=== PATIENT | female | born 1960 | race African-American/Black ===

== ENCOUNTER 2017-11-25 06:12 | Inpatient (IN) | payer OTHER ==
[2017-11-20 13:44] VITALS: BMI 34.2
[2017-11-25] MEDS ORDERED: oxyCODONE HCL 10 MG SUSTAINED ACTING TABLET PO ONE (06:26)
[2017-11-25] MEDS ORDERED: TRANEXAMIC ACID 1000 MG/10 ML VIAL IVPUSH ONE (06:26)
[2017-11-25] MEDS ORDERED: CELECOXIB 200 MG CAPSULE PO ONE (06:26)
[2017-11-25] MEDS ORDERED: CEFAZOLIN 1 GM/D5W 1 GRAM/50 ML BAG IVPB ONE (06:26)
[2017-11-25] MEDS ORDERED: GABAPENTIN 300 MG CAPSULE (FP) PO ONE (06:26)
[2017-11-25] MEDS ORDERED: DEXAMETHASONE SOD PHOSPHATE 4 MG/1 ML VIAL ONE (06:54)
[2017-11-25] MEDS ORDERED: ceFAZolin SODIUM 1 GM VIAL ONE ×2 (06:54→07:18)
[2017-11-25] MEDS ORDERED: ONDANSETRON 4 MG/2 ML VIAL ONE (06:54)
[2017-11-25] MEDS ORDERED: MIDAZOLAM HCL 2 MG/2 ML SINGLE DOSE VIAL ONE ×3 (06:55→07:49)
[2017-11-25] MEDS ORDERED: PROPOFOL 20 ML ONE ×3 (06:55→09:26)
[2017-11-25] MEDS ORDERED: BUPIVACAINE HCL/PF (5 MG/ML) 30 ML VIAL IJ ONE (07:03)
[2017-11-25] MEDS ORDERED: BUPIVACAINE LIPOSOME/PF (EXPAREL) 266 MG/20 ML VIAL ONE (07:03)
[2017-11-25] MEDS ORDERED: SODIUM CHLORIDE 0.9% P/F 10 ML VIAL IJ ONE (07:05)
[2017-11-25] MEDS ORDERED: VANCOMYCIN 1,000 MG VIAL (RESTRICTED TO ID ONLY) ONE (07:18)
--- NOTE | 2017-11-25 07:31 | HP ---
History & Physical Update - History History: No Change - Physical Physical: No Change - Assessment Assessment: No Change - Plan Plan: No Change
[2017-11-25] MEDS ORDERED: TRANEXAMIC ACID 1000 MG/10 ML VIAL ONE (09:23)
[2017-11-25] MEDS ORDERED: ceFAZolin SODIUM 1 GM VIAL IVPB ONE (09:59)
[2017-11-25] MEDS ORDERED: VANCOMYCIN 1,000 MG VIAL (RESTRICTED TO ID ONLY) IVPB ONE (10:00)
[2017-11-25] MEDS ORDERED: ONDANSETRON 4 MG/2 ML VIAL IVPUSH PRN (10:40)
[2017-11-25] MEDS ORDERED: MAG HYDROX/AL HYDROX/SIMETH 30 ML UNIT-DOSE CUP PO PRN (10:40)
[2017-11-25] MEDS ORDERED: PATIENT'S OWN MEDICATION (NON-FORMULARY) (Alprazolam [Xanax] 0.5 MG) PO PRN (10:44)
[2017-11-25] MEDS ORDERED: LACTATED RINGERS SOLUTION 1,000 ML IV SCH ×2 (10:45→11:00)
--- NOTE | 2017-11-25 10:57 | OP ---
Operative Note - Note: Operative Date: 11/25/17 Pre-Operative Diagnosis: Left knee osteoarthritis Operation: Left total knee arthroplasty Surgeon: Dimitry Storm Manager Membership: Dieudonne Velazquez Anesthesia: Spinal Estimated Blood Loss (mls): 50 Operative Report Dictated: Yes
[2017-11-25] MEDS ORDERED: oxyCODONE HCL 5 MG TABLET PO PRN (10:58)
[2017-11-25] MEDS ORDERED: ACETAMINOPHEN 1000 MG/100 ML VIAL (NON FORMULARY) IVPB ONE (10:58)
--- NOTE | 2017-11-25 10:58 | SURG ---
Surgery Fiber Technician Note Fiber Technician: Dieudonne Velazquez PA-C Date of Service: 11/25/17 Diagnosis: Left knee osteoarthritis Procedure: Left knee total arthroplasty I was present for the entirety of the operative procedure. For further detail, please refer to operative report.
[2017-11-25] MEDS ORDERED: ALPRAZolam 0.25 MG TABLET PO PRN (11:30)
--- NOTE | 2017-11-25 15:27 | SPEC ---
DATE OF OPERATION: 11/25/2017 PREOPERATIVE DIAGNOSIS: Degenerative joint disease, right knee. POSTOPERATIVE DIAGNOSIS: Degenerative joint disease, right knee. PROCEDURE: Right total knee replacement with robotic-assisted navigation (Makoplasty). SURGICAL ATTENDING: Dimitry Storm M.D. LATHE MACHINE OPERATOR: TWYLA John ANESTHESIA: Regional and spinal. CLOSURE: A Stephanie Triathlon cemented total knee system with a 2 femur, a 3 tibia, a 9 polyethylene, a 35 patella, number 1 Vicryl fascia, 0 and 2-0 subcutaneous, 3-0 Monocryl subcuticular with skin glue for skin, 4-0 undyed Vicryl for pin sites. ESTIMATED BLOOD LOSS: Less than 100 mL. COMPLICATIONS: None. CONDITION: To recovery room in stable condition. DESCRIPTION OF OPERATIVE PROCEDURE: Patient was taken to the operating room on November 25, 2017. Regional and general anesthesia was administered by the anesthesiologist. IV Kefzol and TXA were administered by the anesthesiologist. Well-padded pneumatic tourniquet was placed on the proximal thigh. The right lower extremity was prepped and draped in the usual sterile fashion. The leg was exsanguinated with an Esmarch bandage, and tourniquet was inflated to 275 mmHg. A 12 to 15-cm longitudinal midline incision was incised while centered over the patella. The dissection was carried down to the level of the extensor mechanism with sufficient flaps made to adequately perform the procedure. A medial parapatellar arthrotomy was then performed. We made a cuff of tissue on the patella for later closure. The patella was inverted, the knee was flexed up. The fat pad was excised. The subperiosteal dissection was on the anteromedial proximal tibia around towards the direction of the MCL. The ACL and the PCL were transected and debrided. The meniscal remnants of the medial and lateral meniscus were debrided and removed. This allowed the knee to be able to "be brought forward." The checkpoints were malleted into the tibia and into the femur. Two threaded pins were drilled anteroposteriorly proximal to the knee through the previous incision, through the anterior cortex, then just engaging the posterior cortex. To these pins was assembled the femoral navigation array. One handbreadth below the tibial tubercle, 2 stab incisions were used to drill 2 threaded pins in parallel fashion into the tibia, again through the anterior cortex and just engaging the posterior cortex. To these pins was fastened the tibial arrays. The knee was then registered with the navigation device with center of rotation of the hip, medial and lateral malleoli, both checkpoints, and multiple points on both the femur and the tibia to ensure excellent registration. The navigation device was directed off the "top of the bubbles" on both the femur and the tibia. The navigation passed within less than 0.5 mm to plan. The knee was then thoroughly inspected to remove all osteophytes both medially, laterally, and on the femur and the tibia, and whatever osteophytes were available for dissection. The knee was then taken to extension and to flexion, and stressed in both varus and valgus to assess flexion gaps. The virtual position of the components on the navigation device were then manipulated to optimize the position and to ensure equal gaps in both flexion and extension, and both medially and laterally. The robot was then brought into the field and was registered. The cuts were then made both on the femur and on the tibia as to plan. All osteophytes posteriorly were then removed as well. The gaps were then measured again in flexion and extension to be equal in both flexion and extension and medial and laterally. The femoral notch was then made, as we were doing a posterior stabilizing component, with the appropriate sized box. Trial reduction of the femur achieved excellent [id number] fit. A tibial baseplate of appropriate polyethylene thickness was "floated in the knee." It was ensured to be in the excellent position by navigation devices and was pinned in place. The knee was taken through a range of motion, and found to have excellent stability throughout flexion and extension. The patella was calibrated for thickness and osteotomized down to the appropriate level. The appropriate lollipop was used to drill the lug holes in the patella and the trial button was applied. The knee was taken through a range of motion and found to have excellent tracking of the patella, and patella from full extension to full flexion. Trial components were removed, the keel was punched and drilled, and a sclerotic bone on the tibia was drilled to help with cement interdigitation. The knee was thoroughly irrigated with the pulse antibiotic licensed appraiser. The real components were then cemented in using monitored arrangement cement techniques with antibiotic cement, and pressurization and extension. After the cement was hardened, the knee was thoroughly inspected to remove any extra cement. The real polyethylene component was then clipped into place. Range of motion, stability, and tracking were as described earlier. The checkpoints and the pins were removed. The knee was thoroughly irrigated with antibiotic irrigation. Vancomycin powder was placed into the knee for antibiotic prophylaxis. The medial parapatellar arthrotomy was then closed using number 1 Vicryl interrupted suture. After closure of the deep layer, the knee was taken through a range of motion, and found to have excellent stability of the patella with no dislocation and no undue tension on the repair. The subcutaneous was pulse antibiotic irrigated, and was then closed with 2-0 Vicryl, 3-0 Monocryl subcuticular with the skin glue for the skin. The distal tibial pin site was irrigated thoroughly as well and then closed with 4-0 undyed Vicryl. A sterile Aquacel dressing was applied, followed by a Caceres dressing. Tourniquet was deflated. Total tourniquet time was approximately 75 minutes. No complications. Patient was awakened from anesthesia and transferred to recovery room in stable condition. Postoperative x-rays revealed excellent position of the components. Mikaela [id number]
[2017-11-25] MEDS: CEFAZOLIN 2 GM/D5W 2 GM/50 ML ML IVPB SCH (19:00)
[2017-11-25] MEDS: ACETAMINOPHEN 325 MG TABLET (FP) PO SCH (19:00)
[2017-11-25] MEDS: NICOTINE 14 MG/24 HOURS TOPICAL PATCH TD SCH (19:39)
[2017-11-25] MEDS: METHADONE HCL 10 MG TABLET PO SCH (19:39)
[2017-11-25] MEDS: SENNOSIDES/DOCUSATE COMBO (SENNA PLUS) TABLET (UD) PO SCH (21:33)
[2017-11-25] MEDS: ATORVASTATIN CA 20 MG TABLET (FP) PO SCH (21:34)
[2017-11-25] MEDS: GABAPENTIN 300 MG CAPSULE (FP) PO SCH (21:34)
[2017-11-25] MEDS: LOSARTAN POTASSIUM 25 MG TABLET PO SCH (21:34)
[2017-11-25] MEDS ORDERED: PATIENT'S OWN MEDICATION (NON-FORMULARY) (Simvastatin 40 MG) PO SCH (22:00)
[2017-11-26] MEDS: ACETAMINOPHEN 325 MG TABLET (FP) PO SCH ×4 (00:15→18:47)
[2017-11-26] MEDS: oxyCODONE HCL 5 MG TABLET PO PRN ×3 (01:23→18:47)
[2017-11-26] MEDS: CEFAZOLIN 2 GM/D5W 2 GM/50 ML ML IVPB SCH (02:00)
[2017-11-26] MEDS ORDERED: LEVOTHYROXINE NA 175 MCG TABLET PO SCH (07:00)
[2017-11-26] MEDS: metFORMIN HCL 500 MG TABLET (FP) PO SCH (07:19)
[2017-11-26 08:20] LABS: HEMATOCRIT 34.3 % (32.4-45.2); HEMOGLOBIN 11.2 GM/dl (10.7-15.3); MCH 26.6 pg (25.7-33.7); MCHC 32.8 g/dl (32.0-36.0); MEAN CELL VOLUME 81.2 fl (80-96); MEAN PLT VOLUME 8.8 fl (7.5-11.1); PLATELET COUNT 258 K/MM3 (134-434); RBC 4.22 M/mm3 (3.60-5.2); RDW 13.4 % (11.6-15.6); WHITE BLOOD COUNT 7.3 K/mm3 (4.0-10.8)
[2017-11-26] MEDS: ASPIRIN 325 MG TABLET PO SCH (08:25)
[2017-11-26 08:39] LABS: ANION GAP 6 (8-16); BLOOD UREA NITROGEN 13 mg/dl (7-18); CALCIUM 8.6 mg/dl (8.4-10.2); CHLORIDE 101 mmol/L (98-107); CO2 28 mmol/L (22-28); CREATININE 0.7 mg/dl (0.6-1.3); GLUCOSE,RANDOM 97 mg/dl (74-106); POTASSIUM 3.8 mmol/L (3.5-5.1); SODIUM 135 mmol/L (136-145)
[2017-11-26] MEDS: SENNOSIDES/DOCUSATE COMBO (SENNA PLUS) TABLET (UD) PO SCH ×2 (09:21→21:49)
[2017-11-26] MEDS: METHADONE HCL 10 MG TABLET PO SCH (09:21)
[2017-11-26] MEDS: NICOTINE 14 MG/24 HOURS TOPICAL PATCH TD SCH (09:21)
[2017-11-26] MEDS: GABAPENTIN 300 MG CAPSULE (FP) PO SCH ×2 (09:21→21:49)
[2017-11-26] MEDS: MULTIVITAMINS (DAILY MVI) TABLET (FP) PO SCH (09:22)
[2017-11-26] MEDS: PANTOPRAZOLE 40 MG TABLET (FP) PO SCH (09:22)
--- NOTE | 2017-11-26 09:29 | PN ---
Progress Note (short form) - Note Progress Note: Anesthesia Postop 57 yo female POD#1 s/p TKA under spinal anesthesia with peripheral nerve blocks. Doing well. Actively participating in PT. Ambulating. Tolerating PO. Pain adequately controlled. Motor function intact. VSS, Afebrile Encouraged IS. No anesthetic complications. Continue current care.
[2017-11-26] MEDS ORDERED: PATIENT'S OWN MEDICATION (NON-FORMULARY) (Ferrous Sulfate [Feosol] 325 MG) PO SCH (10:00)
[2017-11-26] MEDS: FERROUS SO4 325 MG TABLET (FP) PO SCH (10:30)
--- NOTE | 2017-11-26 12:30 | OPR ---
AVSS COMFORTABLE BANDAGES DRY AND INTACT CALF SOFT AND NT NVI AROM 0-60 + STRAIGHT LEG RAISE ABILITY HCT=WNL IMP: DOING WELL PLAN: PT, OOB, DC IN AM
[2017-11-26] MEDS: ATORVASTATIN CA 20 MG TABLET (FP) PO SCH (21:48)
[2017-11-26] MEDS: LOSARTAN POTASSIUM 25 MG TABLET PO SCH (21:48)
[2017-11-27] MEDS: ACETAMINOPHEN 325 MG TABLET (FP) PO SCH ×3 (01:41→12:37)
[2017-11-27] MEDS ORDERED: LEVOTHYROXINE NA 100 MCG TABLET (FP) ONE (06:29)
[2017-11-27] MEDS ORDERED: LEVOTHYROXINE NA 75 MCG TABLET (FP) ONE (06:29)
[2017-11-27] MEDS: metFORMIN HCL 500 MG TABLET (FP) PO SCH (06:37)
[2017-11-27] MEDS: oxyCODONE HCL 5 MG TABLET PO PRN (06:37)
[2017-11-27] MEDS ORDERED: LEVOTHYROXINE 75 MCG, LEVOTHYROXINE 100 MCG PO SCH (07:00)
[2017-11-27 07:54] LABS: HEMATOCRIT 31.4 % (32.4-45.2); HEMOGLOBIN 10.1 GM/dl (10.7-15.3); MCH 26.1 pg (25.7-33.7); MCHC 32.2 g/dl (32.0-36.0); MEAN CELL VOLUME 81.2 fl (80-96); MEAN PLT VOLUME 8.5 fl (7.5-11.1); PLATELET COUNT 251 K/MM3 (134-434); RBC 3.87 M/mm3 (3.60-5.2); RDW 13.1 % (11.6-15.6); WHITE BLOOD COUNT 8.4 K/mm3 (4.0-10.8)
[2017-11-27] MEDS: ASPIRIN 325 MG TABLET PO SCH (09:19)
[2017-11-27] MEDS: METHADONE HCL 10 MG TABLET PO SCH (09:20)
[2017-11-27] MEDS: NICOTINE 14 MG/24 HOURS TOPICAL PATCH TD SCH (09:21)
[2017-11-27] MEDS: SENNOSIDES/DOCUSATE COMBO (SENNA PLUS) TABLET (UD) PO SCH (09:21)
[2017-11-27] MEDS: GABAPENTIN 300 MG CAPSULE (FP) PO SCH (09:21)
[2017-11-27] MEDS: FERROUS SO4 325 MG TABLET (FP) PO SCH (09:21)
[2017-11-27] MEDS: MULTIVITAMINS (DAILY MVI) TABLET (FP) PO SCH (09:22)
[2017-11-27] MEDS: PANTOPRAZOLE 40 MG TABLET (FP) PO SCH (09:22)
--- NOTE | 2017-11-27 13:39 | PATH ---
Surgical Pathology Report Patient Name: STORMY DUEÑAS Med. Rec. #: [id number] /Age/Gender: 1960 (Age: 57) / F Account: [id number] Location: [facility] Taken: 11/25/2017 Received: 11/25/2017 Reported: 11/27/2017 Physicians: Dimitry Storm M.D. Specimen(s) Received RIGHT KNEE BONES Clinical History Osteoarthritis right knee Final Diagnosis KNEE BONES, RIGHT, TOTAL KNEE REPLACEMENT: DEGENERATIVE JOINT DISEASE. Electronically Signed Tracy Wynn M.D. Gross Description Received in formalin labeled "right knee bones," is an 11.5 x 9.0 x 1.5 cm aggregate of multiple portions of bone and soft tissue. The tibial plateau measures 7.0 x 4.7 x 1.5 cm. There is a 2.4 cm greatest dimension area of eburnation identified. The remaining articular surfaces are perez-yellow and focally granular. The underlying trabecular bone is yellow and hard. Graphics Manager sections are submitted in one cassette, following decalcification. 11/26/2017 [facility]
[2017-11-27 14:18] VITALS: BP 107/65; PULSE 83; TEMP 98.5
== END 2017-11-27 17:12 | disposition home health service (06) | DRG 302 ==
LOC: FM/S 06:12
PROVIDERS: ADMIT Orthopaedic Surgery; ATTEND Orthopaedic Surgery
PROC: 8E0Y0CZ Robotic Assisted Procedure of Lower Extremity, Open Approach (ICD-10-PCS; 2017-11-25)
PROC: 0SRC0J9 Replacement of Right Knee Joint with Synthetic Substitute, Cemented, Open Approach (ICD-10-PCS; principal; 2017-11-25 08:00)
DX: M17.11 Unilateral primary osteoarthritis, right knee (principal)
CPT/HCPCS: 36415; 73560-TC-RT-FY; 80048; 82962; 85027; 86803; 87389; 88304-TC; 88311-TC; 94760; 97116-GP; 97162-GP; J0131

== ENCOUNTER 2022-03-18 09:44 | Day surgery (SDC) | payer OTHER ==
[2022-03-11 13:56] VITALS: BMI 36.2
[~2022-03-18 09:44] MED LIST: BUPIVICAINE 0.25%/MORPH PF/KETOROLAC - 51ML DISP.SYRINGE IA ONE
[2022-03-18] MEDS ORDERED: TRANEXAMIC ACID 1000 MG/10 ML VIAL IVPUSH ONE (10:00)
[2022-03-18] MEDS ORDERED: VANCOMYCIN 1 GM in D5W (PRE-DOCKED) 1,000 MG/250 ML IVPB ONE (10:15)
[2022-03-18] MEDS ORDERED: CEFAZOLIN 2 GM in DEXTROSE 5%-WATER - 50 ML IVPB ONE (10:15)
[2022-03-18] MEDS ORDERED: MIDAZOLAM HCL 2 MG/2 ML SINGLE DOSE VIAL ONE (10:43)
[2022-03-18] MEDS ORDERED: BUPIVACAINE LIPOSOME/PF (EXPAREL) 266 MG/20 ML VIAL ONE (10:43)
[2022-03-18] MEDS ORDERED: BUPIVACAINE HCL 100 ML ONE (10:43)
[2022-03-18] MEDS ORDERED: VANCOMYCIN 1,000 MG VIAL (RESTRICTED TO ID ONLY) ONE ×2 (11:04→11:33)
[2022-03-18] MEDS ORDERED: ceFAZolin SODIUM 1 GM VIAL ONE (12:19)
[2022-03-18] MEDS ORDERED: DEXAMETHASONE SOD PHOSPHATE 4 MG/1 ML VIAL ONE ×2 (12:19→15:02)
[2022-03-18] MEDS ORDERED: ONDANSETRON 4 MG/2 ML VIAL ONE ×2 (12:19→15:02)
[2022-03-18] MEDS ORDERED: PROPOFOL 20 ML ONE ×5 (13:08→14:57)
[2022-03-18] MEDS ORDERED: BUPIVICAINE 0.25%/MORPH PF/KETOROLAC - 51ML DISP.SYRINGE IA ONE ×2 (14:49→15:23)
[2022-03-18] MEDS ORDERED: ONDANSETRON 4 MG/2 ML VIAL IVPUSH PRN (15:55)
[2022-03-18] MEDS ORDERED: MAG HYDROX/AL HYDROX/SIMETH 30 ML UNIT-DOSE CUP PO PRN (15:55)
[2022-03-18] MEDS ORDERED: LACTATED RINGERS SOLUTION 1,000 ML IV SCH (16:00)
[2022-03-18] MEDS ORDERED: ALBUTEROL SO4 HFA INHALER IH PRN (16:00)
[2022-03-18] MEDS ORDERED: ALPRAZolam 0.25 MG TABLET PO PRN (16:00)
[2022-03-18] MEDS ORDERED: oxyCODONE HCL 5 MG TABLET PO PRN (16:05)
[2022-03-18] MEDS ORDERED: ACETAMINOPHEN 1000 MG/100 ML BAG IVPB ONE (16:05)
[2022-03-18] MEDS: ACETAMINOPHEN 500 MG TABLET (FP) PO SCH ×2 (16:15→23:19)
[2022-03-18] MEDS ORDERED: ACETAMINOPHEN INJECTION 100 ML IVPB ONE (16:24)
[2022-03-18] MEDS ORDERED: DEXTROSE 5%-WATER 100 ML IVPB ONE (19:53)
[2022-03-18] MEDS: CEFAZOLIN SODIUM 2 GM in DEXTROSE 5%-WATER 100 ML IVPB SCH (19:55)
[2022-03-18] MEDS: INSULIN SLIDING SCALE (NOVOLOG) 1 VIAL SQ SCH (21:30)
[2022-03-18] MEDS: GABAPENTIN 300 MG CAPSULE PO SCH (21:31)
[2022-03-18] MEDS: oxyCODONE HCL 10 MG SUSTAINED ACTING TABLET PO SCH (21:32)
[2022-03-18] MEDS: SENNOSIDES/DOCUSATE COMBO (SENNA PLUS) TABLET (UD) PO SCH (21:32)
[2022-03-18] MEDS ORDERED: ATORVASTATIN CA 20 MG TABLET (FP) PO SCH (22:00)
[2022-03-18] MEDS ORDERED: methaDONE HCL 40 MG DISPERSABLE TABLET PO SCH (22:00)
[2022-03-18] MEDS ORDERED: LOSARTAN POTASSIUM 50 MG TABLET PO SCH (22:00)
[2022-03-19] MEDS: CEFAZOLIN SODIUM 2 GM in DEXTROSE 5%-WATER 100 ML IVPB SCH ×2 (04:04→11:56)
[2022-03-19] MEDS ORDERED: LEVOTHYROXINE NA 100 MCG TABLET (FP) ONE (06:30)
[2022-03-19] MEDS: ACETAMINOPHEN 500 MG TABLET (FP) PO SCH ×2 (06:36→11:58)
[2022-03-19] MEDS: INSULIN SLIDING SCALE (NOVOLOG) 1 VIAL SQ SCH (06:45)
[2022-03-19] MEDS: oxyCODONE HCL 5 MG TABLET PO PRN ×2 (06:48→12:59)
[2022-03-19] MEDS ORDERED: LEVOTHYROXINE 100 MCG, LEVOTHYROXINE 75 MCG PO SCH (07:00)
[2022-03-19 08:08] LABS: HEMATOCRIT 30.9 % (32.4-45.2); HEMOGLOBIN 9.9 G/dL (10.7-15.3); MCH 27.6 pg (25.7-33.7); MCHC 31.9 g/dl (32.0-36.0); MEAN CELL VOLUME 86.6 fl (80-96); MEAN PLT VOLUME 7.9 fl (7.5-11.1); PLATELET COUNT 278.7 10^3/uL (134-434); RBC 3.57 10^6/uL (3.60-5.2); RDW 15.7 % (11.6-15.6); WHITE BLOOD COUNT 8.6 10^3/uL (4.0-10.8)
[2022-03-19 08:30] LABS: CALCIUM 9.2 mg/dl (8.5-10); CREATININE 0.9 mg/dl (0.55-1.3)
[2022-03-19] MEDS: oxyCODONE HCL 10 MG SUSTAINED ACTING TABLET PO SCH (09:07)
[2022-03-19] MEDS: SENNOSIDES/DOCUSATE COMBO (SENNA PLUS) TABLET (UD) PO SCH (09:07)
[2022-03-19] MEDS: GABAPENTIN 300 MG CAPSULE PO SCH (09:07)
[2022-03-19] MEDS ORDERED: ENOXAPARIN NA (PORCINE) 30 MG/0.3 ML DISP.SYRIN SQ SCH (10:00)
[2022-03-19] MEDS ORDERED: APIXABAN 2.5 MG TABLET PO SCH (10:00)
[2022-03-19] MEDS ORDERED: PANTOPRAZOLE 40 MG TABLET PO SCH (10:00)
[2022-03-19] MEDS ORDERED: PATIENT'S OWN MEDICATION (NON-FORMULARY) (Levothyroxine [Synthroid -] 175 MCG Tablet) PO SCH (10:00)
[2022-03-19 13:37] VITALS: BP 145/80; PULSE 86; RESP 16; TEMP 99
== END 2022-03-19 14:14 | disposition home or self-care (01) ==
LOC: FASUSAT 09:44 → FM/S 17:12 → FASUSAT 03-19 14:14
PROC: 8E0Y0CZ Robotic Assisted Procedure of Lower Extremity, Open Approach (ICD-10-PCS; 2022-03-18)
PROC: 0SRD0J9 Replacement of Left Knee Joint with Synthetic Substitute, Cemented, Open Approach (ICD-10-PCS; principal; 2022-03-18 13:07)
DX: M17.12 Unilateral primary osteoarthritis, left knee (principal)
CPT/HCPCS: 20985; 27447; C1776; S2900; 36415; 73560-TC-LT-FY; 80048; 82962; 85027; 88305-TC; 88311-TC; 94760; 97010-GP; 97116-GP; 97163-GP; C1889